=== PATIENT | male | born 1975 | race Caucasian/White ===

== ENCOUNTER 2017-11-21 16:32 | Emergency (ER) | payer BC ==
[~2017-11-21] VITALS: Ht 190.5 cm; Wt 97.5 kg
[2017-11-21 16:32] VITALS: BP 140/80
[2017-11-21 17:01] LABS: BASO % 1 % (0-3); EOS # 0.1 x10^3/uL (0.0-0.7); EOS % 1 % (0-3); HEMATOCRIT 41.6 % (39.0-53.0); HEMOGLOBIN 14.4 g/dL (13.0-17.5); LYMPH # 2.6 x10^3/uL (1.0-4.8); LYMPH % 33 % (24-48); MEAN CORPUSCULAR HEMOGLOBIN 32 pg (25-35); MEAN CORPUSCULAR HGB CONC 35 g/dL (31-37); MEAN CORPUSCULAR VOLUME 92 fL (79-100); MONO # 0.8 x10^3/uL (0.0-1.1); MONO % 10 % (0-9); NEUT # 4.3 x10^3uL (1.8-7.7); NEUT % 55 % (31-73); PLATELET COUNT 156 x10^3/uL (140-400); RED BLOOD COUNT 4.53 x10^6/uL (4.30-5.70); RED CELL DISTRIBUTION WIDTH 12.6 % (11.5-14.5); WHITE BLOOD COUNT 7.8 x10^3/uL (4.0-11.0)
--- NOTE | 2017-11-21 17:06 | EKG ---
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
[2017-11-21 17:12] LABS: PROTHROMBIN TIME PATIENT 12.8 SEC (11.7-14.0)
--- NOTE | 2017-11-21 17:16 | RAD ---
Chest radiograph 11/21/2017 4:58 PM INDICATION: Chest pain COMPARISON: None available TECHNIQUE: Portable upright frontal view of the chest is provided. FINDINGS: The cardiomediastinal silhouette is within normal limits. There are no pleural effusions. There is no pulmonary vascular congestion. There is no pneumothorax. The lungs are clear. No significant osseous abnormality is identified. IMPRESSION: No acute cardiopulmonary process. Electronically signed by: Mckenzie Silveira MD (11/21/2017 5:13 PM) [facility]
[2017-11-21 17:27] LABS: CALCIUM 8.8 mg/dL (8.5-10.1); GFR 82.3; POTASSIUM 3.3 mmol/L (3.5-5.1)
[2017-11-21 17:33] LABS: ALBUMIN 4.2 g/dL (3.4-5.0); ALBUMIN/GLOBULIN RATIO 1.1 (1.0-1.7); TOTAL BILIRUBIN 1.2 mg/dL (0.2-1.0); TOTAL PROTEIN 8.1 g/dL (6.4-8.2)
--- NOTE | 2017-11-21 17:52 | PHYS DOC ---
Past Medical History Past Medical History: Heart Disease, NM, Other Additional Past Medical Histor: PTSD Past Surgical History: Other Additional Past Surgical Histo: cardiac stents, right lower lobectomy Alcohol Use: Occasionally Drug Use: None Adult General Chief Complaint Chief Complaint: CHEST PAIN HPI HPI Patient is a 41 year old male who brought in by EMS because of chest pain. Patient states he was walking in a [place] and had sudden onset of left-sided chest aching pain with radiation to left shoulder as a constant pain and associated with shortness of breath, palpitation, dizziness and diaphoresis. Patient rated his pain 6/10. Patient called 911 as soon as the pain was started and treated with aspirin and nitroglycerin 2 with decrease of pain to 2. Patient has has history of aortic disease just and placement in 2007 and another one a few years ago and does not follow up with her home care specialist. Patient has history of hypertension and strong family history of coronary artery disease and denies smoking cigarettes or using drugs. Patient states 2 shots of hard liquor today. Review of Systems Review of Systems Constitutional: Denies fever or chills [] Eyes: Denies change in visual acuity, redness, or eye pain [] HENT: Denies nasal congestion or sore throat [] Respiratory: Denies cough, reports shortness of breath [] Cardiovascular: No additional information not addressed in HPI [] GI: Denies abdominal pain, vomiting, bloody stools or diarrhea , reports nausea : Denies dysuria or hematuria [] Musculoskeletal: Denies back pain or joint pain [] Integument: Denies rash or skin lesions [] Neurologic: Denies headache, focal weakness or sensory changes [] Endocrine: Denies polyuria or polydipsia [] All other systems were reviewed and found to be within normal limits, except as documented in this note. Allergies Allergies Allergies Coded Allergies Type Severity Reaction Last Updated Verified Penicillins Allergy Severe Anaphylaxis 11/21/17 Yes Sulfa (Sulfonamide Antibiotics) Allergy Intermediate Rash 11/21/17 Yes Physical Exam Physical Exam Constitutional: Well developed, well nourished, mild distress, non-toxic appearance. [] HENT: Normocephalic, atraumatic, oropharynx moist, no oral exudates, nose normal. [] Eyes: PERRLA, EOMI, conjunctiva normal, no discharge. [] Neck: Normal range of motion, no tenderness, supple, no stridor. [] Cardiovascular:Heart rate regular rhythm, no murmur [] Lungs & Thorax: Bilateral breath sounds clear to auscultation [] Abdomen: Bowel sounds normal, soft, no tenderness, no masses, no pulsatile masses. [] Skin: Warm, dry, no erythema, no rash. [] Back: No tenderness, no CVA tenderness. [] Extremities: No tenderness, no cyanosis, no clubbing, ROM intact, no edema. [] Neurologic: Alert and oriented X 3, normal motor function, normal sensory function, no focal deficits noted. [] Psychologic: Affect normal, judgement normal, mood normal. [] Current Patient Data Vital Signs Vital Signs Date Time Temp Pulse Resp B/P (MAP) Pulse Ox O2 Delivery O2 Flow Rate FiO2 11/21/17 16:32 98.1 115 18 140/80 (100) 96 Room Air 98.1 Lab Values Laboratory Tests Test 11/21/17 16:47 White Blood Count 7.8 x10^3/uL (4.0-11.0) Red Blood Count 4.53 x10^6/uL (4.30-5.70) Hemoglobin 14.4 g/dL (13.0-17.5) Hematocrit 41.6 % (39.0-53.0) Mean Corpuscular Volume 92 fL (79-100) Mean Corpuscular Hemoglobin 32 pg (25-35) Mean Corpuscular Hemoglobin Concent 35 g/dL (31-37) Red Cell Distribution Width 12.6 % (11.5-14.5) Platelet Count 156 x10^3/uL (140-400) Neutrophils (%) (Auto) 55 % (31-73) Lymphocytes (%) (Auto) 33 % (24-48) Monocytes (%) (Auto) 10 % (0-9) H Eosinophils (%) (Auto) 1 % (0-3) Basophils (%) (Auto) 1 % (0-3) Neutrophils # (Auto) 4.3 x10^3uL (1.8-7.7) Lymphocytes # (Auto) 2.6 x10^3/uL (1.0-4.8) Monocytes # (Auto) 0.8 x10^3/uL (0.0-1.1) Eosinophils # (Auto) 0.1 x10^3/uL (0.0-0.7) Basophils # (Auto) 0.0 x10^3/uL (0.0-0.2) Prothrombin Time 12.8 SEC (11.7-14.0) Prothrombin Time INR 1.0 (0.8-1.1) Sodium Level 144 mmol/L (136-145) Potassium Level 3.3 mmol/L (3.5-5.1) L Chloride Level 105 mmol/L (98-107) Carbon Dioxide Level 24 mmol/L (21-32) Anion Gap 15 (6-14) H Blood Urea Nitrogen 12 mg/dL (8-26) Creatinine 1.0 mg/dL (0.7-1.3) Estimated GFR (Cockcroft-Gault) 82.3 BUN/Creatinine Ratio 12 (6-20) Glucose Level 89 mg/dL (70-99) Calcium Level 8.8 mg/dL (8.5-10.1) Magnesium Level 2.0 mg/dL (1.8-2.4) Total Bilirubin 1.2 mg/dL (0.2-1.0) H Aspartate Amino Transferase (AST) 22 U/L (15-37) Alanine Aminotransferase (ALT) 30 U/L (16-63) Alkaline Phosphatase 58 U/L (46-116) Creatine Kinase 83 U/L (39-308) Troponin I Quantitative < 0.017 ng/mL (0.000-0.055) KM-Ftg-N-Type Natriuretic Peptide 43 pg/mL (0-124) Total Protein 8.1 g/dL (6.4-8.2) Albumin 4.2 g/dL (3.4-5.0) Albumin/Globulin Ratio 1.1 (1.0-1.7) Lipase 135 U/L (73-393) Ethyl Alcohol Level 137 mg/dL (0-10) H Laboratory Tests 11/21/17 16:47 Laboratory Tests 11/21/17 16:47 EKG EKG EKG interpreted by me. EKG at 1637 showed sinus tachycardia at rate of 121, elevated T in anterior leads, poor R-wave progress in anteroseptal leads, no acute ST and T-wave abnormalities, no previous EKG for compare. Radiology/Procedures Radiology/Procedures [facility] [address] [place] [address] IMAGING REPORT Signed PATIENT: JAKE DUMONT ACCOUNT: [id number] : 1975 LOCATION: ER AGE: 41 SEX: M EXAM STATUS: REG ER ORD. PHYSICIAN: JOSEPH MORGAN MD REASON: chest pain PROCEDURE: PORTABLE CHEST 1V Chest radiograph 11/21/2017 4:58 PM INDICATION: Chest pain COMPARISON: None available TECHNIQUE: Portable upright frontal view of the chest is provided. FINDINGS: The cardiomediastinal silhouette is within normal limits. There are no pleural effusions. There is no pulmonary vascular congestion. There is no pneumothorax. The lungs are clear. No significant osseous abnormality is identified. IMPRESSION: No acute cardiopulmonary process. Electronically signed by: Mahendra Walker MD (11/21/2017 5:13 PM) [facility] DICTATED and SIGNED BY: MAHENDRA WALKER MD DATE: 11/21/17 171 Course & Med Decision Making Course & Med Decision Making Pertinent Labs and Imaging studies reviewed. (See chart for details) Evaluation of patient in ER showed 41-year-old male patient with history of stent placement and family history of coronary artery disease presented with chest pain, shortness of breath, diaphoresis and dizziness that improved with nitroglycerin 2 given by EMS. Patient had unremarkable physical exam and labs. EKG showed inverted T-wave without having previous EKG for compare. Because of several cardiac risk factor plan to admit patient with diagnosis of acute chest pain. Dragon Disclaimer Dragon Disclaimer This electronic medical record was generated, in whole or in part, using a voice recognition dictation system. Departure Departure Impression: Primary Impression: Acute chest pain Disposition: ADMITTED INPATIENT Admitting Physician: Dale Dumont (at 1802) Condition: IMPROVED Referrals: UNKNOWN PCP NAME (PCP) JOSEPH MORGAN MD Nov 21, 2017 17:52
== END 2017-11-21 18:40 | disposition left against medical advice (07) ==
LOC: ER 16:32 → UNDOADMIN 17:50 → 2 NORTH 17:50 → ER 18:40
DX: R07.89 Other chest pain (principal); R06.02 Shortness of breath; R42 Dizziness and giddiness; I11.9 Hypertensive heart disease without heart failure; I25.2 Old myocardial infarction; Z88.2 Allergy status to sulfonamides; Z88.0 Allergy status to penicillin
CPT/HCPCS: 36415; 71045; 80053; 82550; 83690; 83735; 83880; 84484; 85025; 85610; 93005; 99285; G0480